=== PATIENT | male | born 1980 | race Caucasian/White ===

== ENCOUNTER 2017-03-20 21:55 | Emergency (ER) | payer OTHER ==
[~2017-03-20] VITALS: Ht 195.6 cm; Wt 121.9 kg
[2017-03-20 22:32] LABS: ADD MEDTOX COMMENT Y; AMPHETAMINE NEGATIVE (500 ng/mL); BARBITURATES NEGATIVE (200 ng/mL); BENZODIAZEPINES NEGATIVE (150 ng/mL); COCAINE NEGATIVE (150 ng/mL); INTERNAL CONTROLS VALID? YES; METHADONE NEGATIVE (200 ng/mL); METHAMPHETAMINE NEGATIVE (500 ng/mL); OPIATES (MORPHINE) NEGATIVE (100 ng/mL); OXYCODONE NEGATIVE (100 ng/mL); PHENCYCLIDINE NEGATIVE (25 ng/mL); PROPOXYPHENE NEGATIVE (300 ng/mL); THC CANNABINOIDS PRESUMPTIVE POSITIVE (50 ng/mL); TRICYCLIC ANTIDEPRESSANTS PRESUMPTIVE POSITIVE (300 ng/mL)
[2017-03-20 22:50] LABS: MARIJUANA QUANT VALUE 0 NG/ML
[2017-03-20 22:51] LABS: HEMATOCRIT 40.6 % (38.0-50.0); MCHC 33.7 G/DL (30.0-36.0); MCV 91.9 FL (86-99); MEAN PLAT.VOLUME 8.8 uM^3 (9.0-12.4); PLATELET COUNT 205 K/uL (156-360); RBC DIS.WIDTH-CV 11.8 % (11.8-14.6); RBC DIS.WIDTH-SD 39.9 % (39-53); RED BLOOD COUNT 4.42 M/uL (4.00-5.50); WHITE BLOOD COUNT 6.2 K/uL (4.1-10.2)
[2017-03-20 23:07] LABS: CHLORIDE 107 mEq/L (99-109); POTASSIUM 4.1 mEq/L (3.7-5.4); SODIUM 143 mEq/L (136-147)
[2017-03-20 23:09] LABS: GLUCOSE 106 mg/dL (70-99)
[2017-03-20 23:10] LABS: ANION GAP 12 MEQ/L (2-14)
[2017-03-20 23:12] LABS: SERUM ETHYL ALCOHOL < 10 mg/dL
[2017-03-20 23:13] LABS: GFR ESTIMATE (CALCULATED) > 59 mL/min/
[2017-03-20 23:14] LABS: UREA NITROGEN (BUN) 14 mg/dL (9-23)
[2017-03-21 10:02] VITALS: BP 110/62
== END 2017-03-21 10:04 | disposition home or self-care (01) ==
LOC: EME 21:55
DX: F60.81 Narcissistic personality disorder (principal); F31.81 Bipolar II disorder; F63.81 Intermittent explosive disorder; F32.9 Major depressive disorder, single episode, unspecified; Z87.891 Personal history of nicotine dependence
CPT/HCPCS: 80048; 84999; 85027; 90837; 99281; 99284; G0480